=== PATIENT | female | born 1990 | race Caucasian/White ===

== ENCOUNTER 2022-11-02 20:35 | Emergency (ER) | payer OTHER ==
[2022-11-02 21:10] LABS: BASOPHILS # (AUTO) 0.1 10^3/uL (0.0-0.1); BASOPHILS % (AUTO) 0.9 %; EOSINOPHILS # (AUTO) 0.1 10^3/uL (0.0-0.7); HCT - HEMATOCRIT 42.2 % (37.0-47.0); LYMPHOCYTES # (AUTO) 2.1 10^3/uL (1.5-3.5); LYMPHOCYTES % (AUTO) 26.7 %; MEAN CORPUSCULAR HGB CONC 33.2 g/dL (32.0-36.0); MEAN CORPUSCULAR VOLUME 87.4 fL (81.0-99.0); MONOCYTES # (AUTO) 0.5 10^3/uL (0.0-1.0); MONOCYTES % (AUTO) 6.6 %; NEUTROPHILS # (AUTO) 5.2 10^3/uL (1.5-6.6); NEUTROPHILS % (AUTO) 64.6 %; PLT - PLATELET COUNT 427 10^3/uL (130-450); RED BLOOD COUNT 4.83 10^6/uL (4.20-5.40); RED CELL DISTRIBUTION WIDTH 12.9 % (12.0-15.0)
[2022-11-02 21:27] LABS: ALBUMIN 3.7 g/dL (3.2-5.5); ALBUMIN/GLOBULIN RATIO 1.2 (1.0-2.2); BILIRUBIN,TOTAL 0.4 mg/dL (0.2-1.0); CALCIUM 8.7 mg/dL (8.5-10.3); CREATININE 0.7 mg/dL (0.4-1.0); POTASSIUM 3.4 mmol/L (3.5-5.0); TOTAL PROTEIN 6.9 g/dL (6.7-8.2)
--- NOTE | 2022-11-02 21:39 | ED Physician Documentation ---
PD HPI CHEST PAIN - Stated complaint Stated Complaint: SOA,CHEST PX - Chief complaint Chief Complaint: Cardiac - History obtained from History obtained from: Patient - Additional information Additional information: 32yF with pmh depression, anxiety, gestational diabetes and gestational htn, p/w multiple episodes of dizziness and chest pressure over past few days with associated soa. L substernal chest pressure, with associated soa and tingling in face and extremities. denies fever, cough, leg swelling. did have high bp reading at home. Review of Systems Constitutional: denies: Fever Cardiac: reports: Chest pain / pressure Respiratory: reports: Dyspnea. denies: Cough GI: denies: Abdominal Pain, Vomiting, Diarrhea PD PAST MEDICAL HISTORY - Past Medical History Cardiovascular: Other Neuro: Migraines Psych: Depression Other Past Medical History: gestational diabetes and HTN - Past Surgical History General: Appendectomy /KITCHEN CHEF: section, Tubal ligation - Present Medications Home Medications: Ambulatory Orders Medication Instructions Recorded Confirmed buPROPion [Wellbutrin Xl] 150 mg PO DAILY 11/02/22 11/02/22 - Allergies Allergies/Adverse Reactions: Allergies Allergy/AdvReac Type Severity Reaction Status Date / Time No Known Drug Allergies Allergy Verified 11/02/22 20:44 - Social History Does the pt smoke?: No Smoking Status: Former smoker Does the pt drink ETOH?: No Does the pt have substance abuse?: No - Immunizations Immunizations are current?: Yes PD ED PE NORMAL - Vitals Vital signs reviewed: Yes - General General: Alert and oriented X 3, No acute distress, Well developed/nourished, Other (tearful, hyperventilating on initial evaluation, improving over the course of my history and exam) - HEENT HEENT: Atraumatic, PERRL, EOMI - Neck Neck: Supple, no meningeal sign - Cardiac Cardiac: Other (tachycardic rate, regular rhythm) - Respiratory Respiratory: No respiratory distress, Clear bilaterally - Abdomen Abdomen: Non tender, Non distended - Derm Derm: Normal color, Warm and dry - Extremities Extremities: No deformity - Neuro Neuro: Alert and oriented X 3, No motor deficit, No sensory deficit - Psych Psych: Other (anxious affect) Results - Vitals Vitals: Vital Signs - 24 hr 11/02/22 11/02/22 11/02/22 20:41 21:37 22:00 Temperature 36.9 C Heart Rate 119 H 115 H 91 Respiratory 20 17 18 Rate Blood Pressure 172/109 H 180/118 H 148/106 H O2 Saturation 100 100 100 Oxygen O2 Source Room air - EKG (time done) 2049 EKG releavant findings:: EKG personally interpreted by author of this note. Relevant findings are: Rate: Rate (enter#) (109) Rhythm: Sinus tachycardia [place]: Normal Intervals: Normal MI QRS: Normal Ischemia: Normal ST segments Computer interpretation: Agree with computer - Labs Labs: Laboratory Tests 11/02/22 11/02/22 11/02/22 21:02 21:02 21:02 WBC 8.0 RBC 4.83 Hgb 14.0 Hct 42.2 MCV 87.4 MCH 29.0 MCHC 33.2 RDW 12.9 Plt Count 427 MPV 9.0 Neut # (Auto) 5.2 Lymph # (Auto) 2.1 [place] # (Auto) 0.5 Eos # (Auto) 0.1 Baso # (Auto) 0.1 Absolute Nucleated RBC 0.00 Nucleated RBC % 0.0 D-Dimer < 200.0 L Sodium 136 Potassium 3.4 L Chloride 107 Carbon Dioxide 22 Anion Gap 7.0 BUN 14 Creatinine 0.7 Estimated GFR (MDRD) 96 Glucose 174 H Calcium 8.7 Total Bilirubin 0.4 AST 18 ALT 21 Alkaline Phosphatase 63 Troponin I High Sens Total Protein 6.9 Albumin 3.7 Globulin 3.2 Albumin/Globulin Ratio 1.2 Lipase 39 11/02/22 21:02 WBC RBC Hgb Hct MCV MCH MCHC RDW Plt Count MPV Neut # (Auto) Lymph # (Auto) [place] # (Auto) Eos # (Auto) Baso # (Auto) Absolute Nucleated RBC Nucleated RBC % D-Dimer Sodium Potassium Chloride Carbon Dioxide Anion Gap BUN Creatinine Estimated GFR (MDRD) Glucose Calcium Total Bilirubin AST ALT Alkaline Phosphatase Troponin I High Sens < 2.3 L Total Protein Albumin Globulin Albumin/Globulin Ratio Lipase PD Medical Decision Making - ED course ED course: 32yF with pmh depression and anxiety p/w chest pressure and shortness of breath for the past few days, worsening tonight. CBC, abdominal panel, trop, d-dimer ordered and all negative. ekg sinus tachycardia, otherwise unremarkable. CXR wet read negative for acute pathology. ativan provided after shared decision making with patient. Given this has been ongoing for a few days and high sensitivity troponin is negative, UT has effectively been ruled out. Negative d-dimer rules out PE. Patient showing no signs/symptoms of pneumonia or pneumothorax. recommending outpatient f/u with pcp. return precautions given. Departure - Departure Disposition: 01 Home, Self Care Clinical Impression: Dyspnea, Atypical chest pain Condition: Stable Instructions: ED Chest Pain NonCardiac Comments: You were seen in the ED for chest pressure and shortness of breath. Your workup in the emergency department ruled out heart attack or blood clot in the lung. Your bloodwork was normal. You can follow up with your primary care provider and return to the emergency department if you have new or worsening symptoms or other concerns.
--- NOTE | 2022-11-02 22:12 | XRAY Report ---
PROCEDURE: Chest 1 View X-Ray INDICATIONS: Chest Pain TECHNIQUE: One view of the chest was acquired. COMPARISON: None. FINDINGS: Surgical changes and devices: None. Lungs and pleura: No pleural effusions or pneumothorax. Lungs are clear. Mediastinum: Mediastinal contours appear normal. Heart size is normal. Bones and chest wall: No suspicious bony lesions. Overlying soft tissues appear unremarkable. IMPRESSION: No acute cardiopulmonary disease. Reviewed by: Sabino Vides MD on 11/02/2022 10:11 PM PDT Approved by: Sabino Vides MD on 11/02/2022 10:11 PM PDT Station ID: [id number]
[2022-11-02] MEDS ORDERED: LORazepam 1 MG TABLET PO STA (22:13)
[2022-11-02] MEDS ORDERED: ACETAMINOPHEN 325 MG TABLET PO STA (23:05)
[2022-11-02 23:12] VITALS: BP 118/85
== END 2022-11-02 23:21 | disposition home or self-care (01) ==
LOC: ED 20:35
DX: R06.00 Dyspnea, unspecified (principal); R07.89 Other chest pain; Z87.891 Personal history of nicotine dependence
CPT/HCPCS: 36415; 71045; 80053; 83690; 84484; 85025; 85379; 93005; 99283; 99284; A9270; J8499